=== PATIENT | female | born 1995 | race Caucasian/White ===

== ENCOUNTER 2017-10-22 21:35 | Outpatient (CLI) | payer OTHER ==
[~2017-10-22] VITALS: Ht 152.4 cm; Wt 59.7 kg
[2017-10-22 21:39] VITALS: Ht 152.4 cm; Wt 59.7 kg
--- NOTE | 2017-10-22 23:40 | RADRPT ---
PROCEDURE: Biophysical profile. CLINICAL INDICATION: Pelvic pain. TECHNIQUE: Multiple sonographic images of the pelvis were obtained with transabdominal technique. COMPARISON: No prior studies are available for comparison. FINDINGS: There is a single living intrauterine gestation with the fetus in a vertex position. The placenta i s posterior in location, grade 1 to 2. heart tones of 136 beats per minute are identified. Th ere is low normal amniotic fluid volume with an JACQUIE of 8.5 cm. breathing movements = 2 Gross body movements = 2 tone = 2 Qualitative AFV = 2 IMPRESSION: Biophysical profile 8 out of 8. Low normal JACQUIE of 8.5 cm. .Rogelio Castellanos MD, Date Time Electronically viewed and signed by .Rogelio Castellanos MD, on 10/22/2017 23:40 .T/
--- NOTE | 2017-10-23 00:05 | RADRPT ---
PROCEDURE: Obstetrical ultrasound, limited. CLINICAL INDICATION: Pelvic pain. TECHNIQUE: Multiple sonographic images of the pelvis were obtained using transabdominal technique . Images were obtained with ling scale and color Doppler. The images were reviewed on a PACS works tation. COMPARISON: No prior studies are available for comparison. FINDINGS: There is a single living intrauterine gestation with the fetus in a vertex presentation. hear t tones of 159 beats per minute are identified. The placenta is posterior in location, grade 1. Th ere is no evidence of placenta previa or abruption. Measurements were made in order to determine age. The results are as follows: BPD =8.15 cm HC =30.51 cm AC =30.63 cm FL =6.68 cm. Estimated gestational age of approximately 34 weeks and 0 days. The estimated date of delivery is 12/03/2017. The EFW = 2390 +/- 359 grams. Estimated weight percentage equals 4.2%. IMPRESSION: Single viable intrauterine gestation of approximately 34 weeks and 0 days, with an ultrasound CHRISTIANA of 12/03/2017. .Rogelio Castellanos MD, MD Date Time Electronically viewed and signed by .Rogelio Castellanos MD, MD on 10/23/2017 00:05 .T/
--- NOTE | 2017-10-23 00:29 | TRIAGE ---
OB Triage Datetime Report Generated by CPN: 10/23/2017 00:29 Datetime: 10/23/2017 00:28 Stage of : OB Triage Datetime: 10/22/2017 22:24 Labor Evaluation Frequency: 4-7 Monitor Mode: External Duration (sec)2399: 60-80 Pattern: Normal: <= 5 Contractions in 10 Minutes Heart Rate FHR Baseline Rate: 145 Monitor Mode: External US FHR Baseline Changes: No Baseline Change Variability: Moderate 6-25 bpm Accelerations: 15X15 Decelerations: None Category: Category I Datetime: 10/22/2017 21:54 Vaginal Exam Dilatation (cms): 1.0 Effacement (%): 70 Station: -1 Exam By: NICO RIOS Vaginal Bleeding: None Cervix, Consistency: Soft Cervix, Position: Midposition Presentation 'A': Cephalic Datetime: 10/22/2017 21:48 Monitor Mode: Palpation Resting Tone [place]: Relaxed Monitor Mode: External US Datetime: 10/22/2017 21:36 Stage of : OB Triage Assessment Type: Triage Maternal Assessment Level of Consciousness: Fully Conscious Headache: Denies Blurred Vision: No Respiratory Effort: Unlabored; Regular Rhythm; Equal Expansion Nausea/Vomiting: Denies RUQ Epigastric Pain: Denies Facial Edema: None Fall Risk Assessment History of Falling: (0) No Secondary Diagnosis: (0) No Ambulatory Aid: (0) Bedrest/Nurse Assist IV Therapy: (0) No Gait: (0) Normal/Bedrest/Immobile Mental Status: (0) Oriented to Own Ability Fall Score: 0 Fall Risk Score Definition: No Risk: No action required Datetime: 10/22/2017 21:25 EGA: 37.5 Datetime: 10/22/2017 21:21 Time of Arrival: 10/22/2017 21:21 Arrived By: Ambulatory Arrived From: Home Chief Complaint: UC'S SINCE YESTERDAY Q15MIN Movement: Present Contractions: Occasional Contractions: Q15MIN Rupture of Membranes: Denies Vaginal Bleeding: None Vaginal Discharge: Denies Recent Sexual Intercouse: Denies Abdominal Trauma: Not Applicable Patient Complaints: Contractions Time Provider Notified: 10/22/2017 22:11 Provider Notified: STALIN Initial Plan: AVA KENDRICK, MAC OBRICHARDN
--- NOTE | 2017-10-23 03:10 | PN ---
Triage Information Date/Time Reason for visit: Uterine contractions Weeks of Gestation 37 weeks and 5 days /Para 1 para 0 Diabetes: none Hypertention: none Additional information 23-year-old with IUP at 37 weeks and 5 days presented with complaint of contractions. She denied any leaking of fluid, vaginal bleeding or decreased movement. Size was noted to be smaller than dates. Growth ultrasound showed at 34 weeks. Concern for IUGR. NST and BPP reassuring. Patient was advised to present in 3 days for testing NST and BPP. Objective Heart Rate: 130's Contractions: None Exam General appearance: Alert and oriented 4. Patient does not appear to be in any acute distress. Abdomen: Soft, gravid, fundal height, smaller than gestational age, concern for IUGR Results/Medications Imaging Results PROCEDURE: Obstetrical ultrasound, limited. CLINICAL INDICATION: Pelvic pain. TECHNIQUE: Multiple sonographic images of the pelvis were obtained using transabdominal technique. Images were obtained with ling scale and color Doppler. The images were reviewed on a PACS workstation. COMPARISON: No prior studies are available for comparison. FINDINGS: There is a single living intrauterine gestation with the fetus in a vertex presentation. heart tones of 159 beats per minute are identified. The placenta is posterior in location, grade 1. There is no evidence of placenta previa or abruption. Measurements were made in order to determine age. The results are as follows: BPD = 8.15 cm HC = 30.51 cm AC = 30.63 cm FL = 6.68 cm. Estimated gestational age of approximately 34 weeks and 0 days. The estimated date of delivery is 12/03/2017. The EFW = 2390 +/- 359 grams. Estimated weight percentage equals 4.2%. IMPRESSION: Single viable intrauterine gestation of approximately 34 weeks and 0 days, with an ultrasound CHRISTIANA of 12/03/2017. .Rogelio Castellanos MD, MD Date Time Electronically viewed and signed by .Rogelio Castellanos MD, MD on 10/23/2017 00:05 .T/ CC: EDWAR CEJA MD PROCEDURE: Biophysical profile. CLINICAL INDICATION: Pelvic pain. TECHNIQUE: Multiple sonographic images of the pelvis were obtained with transabdominal technique. COMPARISON: No prior studies are available for comparison. FINDINGS: There is a single living intrauterine gestation with the fetus in a vertex position. The placenta is posterior in location, grade 1 to 2. heart tones of 136 beats per minute are identified. There is low normal amniotic fluid volume with an JACQUIE of 8.5 cm. breathing movements = 2 Gross body movements = 2 tone = 2 Qualitative AFV = 2 IMPRESSION: Biophysical profile 8 out of 8. Low normal JACQUIE of 8.5 cm. Disposition: Discharge Assessment/Plan Follow-up in 3 days in triage for NST BPP Consider consultation with maternal- medicine and Doppler, ultrasound at next visit Growth ultrasound based on patient's original due date shows estimated weight for percentile consistently IUGR records are not available Currently testing reassuring Advised the patient to present to triage in 3 days for repeat the testing and possible Doppler with obtaining records and consultation with MFM If confirmed to be IUGR consider delivery Strict labor precaution and kick count discussed with patient Follow-up in 3 days Patient verbalized understanding EDWAR CEJA MD Oct 23, 2017 03:10
== END 2017-10-23 00:31 | disposition home or self-care (01) ==
LOC: OBT 21:35 → L-D 21:38 → OBT 10-23 00:31
PROVIDERS: ATTEND Obstetrics & Gynecology
DX: O62.9 Abnormality of forces of labor, unspecified (principal); Z3A.37 37 weeks gestation of pregnancy
CPT/HCPCS: 76815; 76818; G0463

== ENCOUNTER 2017-10-23 03:30 | Inpatient (IN) | payer OTHER ==
[~2017-10-23] VITALS: Ht 152.4 cm; Wt 59.7 kg
[2017-10-23] MEDS ORDERED: LACTATED RINGER'S 1,000 ML IV SCH (03:44)
[2017-10-23] MEDS ORDERED: CARBOPROST 250 MCG INJ IM PRN ×2 (04:00→14:30)
[2017-10-23] MEDS ORDERED: OXYTOCIN 30 UNITS/LR 500 ML IV PRN ×2 (04:00→14:30)
[2017-10-23] MEDS ORDERED: LIDOCAINE 1% (MPF) 30 ML INJ INJ PRN (04:00)
[2017-10-23] MEDS ORDERED: METHYLERGONOVINE 0.2 MG INJ IM PRN ×2 (04:00→14:30)
[2017-10-23] MEDS ORDERED: LACTATED RINGER'S 1,000 ML IV PRN (04:00)
[2017-10-23] MEDS ORDERED: OXYTOCIN 30 UNITS/LR 500 ML IV SCH ×3 (04:00→06:30)
[2017-10-23] MEDS ORDERED: AMPICILLIN 2 GM/NS (PMX) 100 ML IV ONE (04:00)
[2017-10-23] MEDS ORDERED: IBUPROFEN 600 MG TAB PO PRN (04:00)
[2017-10-23] MEDS ORDERED: BUTORPHANOL 2 MG INJ IV PRN (04:00)
[2017-10-23] MEDS ORDERED: MISOPROSTOL 200 MCG TAB PR PRN ×2 (04:00→14:30)
[2017-10-23] MEDS ORDERED: OXYCODONE/ASPIRIN (4.88/325) TAB PO PRN ×3 (04:00→14:30)
--- NOTE | 2017-10-23 04:22 | TRIAGE ---
OB Triage Datetime Report Generated by CPN: 10/23/2017 04:22 Datetime: 10/23/2017 04:19 Assessment Type: Admission Assessment Time of Arrival: 10/23/2017 03:31 EGA: 37.6 Arrived By: Wheelchair Arrived From: Home Chief Complaint: SROM Movement: Present Contractions: Regular Contractions: Q7 Rupture of Membranes: Ruptured Vaginal Bleeding: None Vaginal Discharge: Present Recent Sexual Intercouse: Denies Abdominal Trauma: Not Applicable Patient Complaints: Contractions Time Provider Notified: 10/23/2017 03:49 Provider Notified: STALIN Level of Consciousness: Fully Conscious DTR's/Clonus: DTRs 2+; No Clonus Headache: Denies Blurred Vision: No Respiratory Effort: Unlabored; Regular Rhythm; Equal Expansion Breath Sounds, Left: Clear and Equal Breath Sounds, Right: Clear and Equal Nausea/Vomiting: Denies RUQ Epigastric Pain: Denies Facial Edema: None History of Falling: (0) No Secondary Diagnosis: (0) No Ambulatory Aid: (0) Bedrest/Nurse Assist Gait: (0) Normal/Bedrest/Immobile Mental Status: (0) Oriented to Own Ability Pain Scale: 10 Pain Presence: Intermittent Pain Type: Contraction Pain Location: Abdomen; Back Membrane Status: Ruptured Membranes Ruptured Date/Time: 10/23/2017 03:00 Membranes Rupture Method: Spontaneous Amniotic Fluid Color: Clear Amniotic Fluid Amount: Small Amniotic Fluid Odor: None Datetime: 10/23/2017 04:18 Time of Arrival: 10/23/2017 04:00 EGA: 37.6 Arrived By: Wheelchair Arrived From: OB TRIAGE Datetime: 10/23/2017 03:48 Membrane Status: Ruptured Datetime: 10/23/2017 03:38 Dilatation (cms): 2.0 Effacement (%): 80 Station: -1 Exam By: GSTRATTON RN Datetime: 10/23/2017 00:21 FHR Baseline Rate: 150 Monitor Mode: External US FHR Baseline Changes: No Baseline Change Variability: Moderate 6-25 bpm Accelerations: Prolonged Datetime: 10/22/2017 21:36 Fall Score: 0 Fall Risk Score Definition: No Risk: No action required Datetime: 10/22/2017 21:25 EGA: 37.5
[2017-10-23 04:28] VITALS: Ht 152.4 cm; Wt 59.7 kg
[2017-10-23 04:32] LABS: BASOPHILS % 0.2 % (0.0-2.0); EOSINOPHILS # 0.1 10^3/ul (0.0-0.5); EOSINOPHILS % 0.6 % (0.0-7.0); HEMATOCRIT 37.5 % (37.0-47.0); HEMOGLOBIN 12.8 g/dl (12.0-16.0); LYMPHOCYTES # 2.4 10^3/ul (0.8-2.9); LYMPHOCYTES % 19.1 % (15.0-51.0); MEAN CORPUSCULAR HEMOGLOBIN 29.6 pg (29.0-33.0); MEAN CORPUSCULAR HGB CONC 34.1 g/dl (32.0-37.0); MEAN CORPUSCULAR VOLUME 86.8 fl (82.0-101.0); MEAN PLATELET VOLUME 10.4 fl (7.4-10.4); MONOCYTE # 0.7 10^3/ul (0.3-0.9); MONOCYTES % 5.6 % (0.0-11.0); NEUTROPHIL # 9.2 10^3/ul (1.6-7.5); NEUTROPHILS % 73.9 % (39.0-77.0); PLATELET COUNT 215 10^3/UL (140-415); RED BLOOD COUNT 4.32 10^6/ul (4.20-5.40); WHITE BLOOD COUNT 12.4 10^3/ul (4.8-10.8)
[2017-10-23 04:52] LABS: INR 0.93; PARTIAL THROMBOPLASTIN TIME 29.2 Sec (25.0-35.0); PROTIME 12.5 Sec (12.2-14.2)
[2017-10-23] MEDS ORDERED: MINERAL OIL LIGHT 10 ML VIAL TOP PRN (05:00)
[2017-10-23] MEDS ORDERED: FENTAnyl 2MCG/ML-ROPIV 0.2% 100 ML ONE (05:55)
[2017-10-23] MEDS ORDERED: FENTAnyl 2MCG/ML-ROPIV 0.2% 100 ML BAG EPI SCH (06:30)
[2017-10-23] MEDS ORDERED: ONDANSETRON 4 MG INJ IV PRN (06:30)
[2017-10-23] MEDS ORDERED: DIPHENHYDRAMINE 50 MG INJ IV PRN (06:30)
[2017-10-23] MEDS ORDERED: NALOXONE (0.4 MG/ML) INJ IV PRN (06:30)
[2017-10-23 07:45] VITALS: BP 94/54; PULSE 89; RESP 20
[2017-10-23] MEDS ORDERED: AMPICILLIN 1 GM/NS (PMX) 50 ML IV SCH (08:00)
--- NOTE | 2017-10-23 10:24 | HP ---
Date/Time of Note Date/Time of Note DATE: 10/23/17 TIME: 10:12 OB - History Hx of Present Free Text/Dictation 22 y.o [id number] srom in early labor VE 2cm 80 -2 rom confirmed rom plus pos uc q4min this patient already had late entry at previous clinic and again transferred to my clinic at after 34w admitted for expectant management /poss augmentation Chief Complaint: srom Estimated Due Date: Nov 07, 2017 : 1 Para: 0 Spontaneous : 0 Therapeutic : 0 Care: Limited Care Ultrasounds: Other Obstetrical Complications: None Medical Complications: None Past Family/Social History * Past Medical, Surgical, Family and Obstetric Histories reviewed from chart. Blood Type: B+ Rubella: unknown RPR/VDRL: Negative GBS Status: Unknown HBsAG: Unknown OB Admission Exam Vital Signs Vital Signs Vital Signs Date Time Temp Pulse Resp B/P Pulse Ox O2 Delivery O2 Flow Rate FiO2 10/23/17 07:45 98.2 89 20 94/54 Room Air Physical Exam HEENT: WNL Heart: Rhythm Normal Lungs: Clear, Equal Abdomen: WNL Extremities: Normal Reflexes: Normal Cervical Dilatation: 2cm Effacement: 75% Station: -2 Membranes: Ruptured Amniotic Fluid: Clear Heart Rate: 120's Accelerations: Accelerations Present Decelerations: No Decelerations Varibility: Moderate Contractions on Admission: < 5 Minutes Apart Intensity: Mild Last 72 hours Lab Results CBC & BMP 10/23/17 03:40 OB Assessment/Plan Other Assessment: IUP 37w6d in labor SROM Plan: Expectant Management Induction Method: other Other plan: poss augmentation JOVITA GANT MD Oct 23, 2017 10:23
--- NOTE | 2017-10-23 10:27 | LDN ---
Date/Time of Note Date/Time of Note DATE: 10/23/17 TIME: 10:24 Delivery Summary Weeks of Gestation 37w6d Placenta Delivered: Spontaneously Episiotomy: No Perineal laceration: 1 Laceration repair: 000ch gut Anesthesia type: Epidural Estimated blood loss: 100 Sponge & Needle done & correct: Yes All needle counts correct: Yes Any foreign bodies felt in the: No Problems: Delivery Information Sex Sex: female Apgars 1 Minute: 9 5 Minute: 9 Suctioning Nose & mouth suctioned at josh: Yes Delee suction performed: No Umbilical Cord Umbilical cord with: 3 Vessels Cord presentations: no nuchal cord Cord Blood was obtained: Yes Mother & Baby Disposition Disposition Mom & Baby to Maternity; Good: Yes Mom transferred to: Other Baby to NICU: No () JOVITA GANT MD Oct 23, 2017 10:27
[2017-10-23 14:22] VITALS: BP 107/67; PULSE 80
[2017-10-23] MEDS ORDERED: ZOLPIDEM 5 MG TAB PO PRN (14:30)
[2017-10-23] MEDS ORDERED: BENZOCAINE 20% 56 ML SPRAY TOP PRN (14:30)
[2017-10-23] MEDS ORDERED: LANOLIN 7 GM TUBE TOP PRN (14:30)
[2017-10-23] MEDS ORDERED: WITCH HAZEL/GLYCERIN PAD PR PRN (14:30)
[2017-10-23 15:00] VITALS: BP 111/62; RESP 20
[2017-10-23] MEDS: IBUPROFEN 600 MG TAB PO SCH ×3 (15:03→23:56)
[2017-10-23 17:30] VITALS: BP 110/66; PULSE 71; RESP 18
[2017-10-23 18:30] VITALS: BP 107/62; PULSE 66; RESP 16
[2017-10-23 20:00] VITALS: BP 110/58; PULSE 110; PULSE 72; RESP 19
[2017-10-23] MEDS: SENNA/DOCUSATE NA (8.6MG/50MG) TAB PO SCH (21:50)
[2017-10-24] VITALS: BP 108/71; PULSE 79; RESP 19
[2017-10-24 04:30] VITALS: BP 110/70; PULSE 75; RESP 18
[2017-10-24] MEDS: IBUPROFEN 600 MG TAB PO SCH ×4 (06:10→23:35)
[2017-10-24 06:37] LABS: BASOPHILS % 0.3 % (0.0-2.0); EOSINOPHILS # 0.1 10^3/ul (0.0-0.5); EOSINOPHILS % 0.8 % (0.0-7.0); HEMATOCRIT 33.9 % (37.0-47.0); HEMOGLOBIN 11.5 g/dl (12.0-16.0); LYMPHOCYTES # 1.9 10^3/ul (0.8-2.9); LYMPHOCYTES % 17.2 % (15.0-51.0); MEAN CORPUSCULAR HGB CONC 33.9 g/dl (32.0-37.0); MEAN CORPUSCULAR VOLUME 88.5 fl (82.0-101.0); MEAN PLATELET VOLUME 10.1 fl (7.4-10.4); MONOCYTE # 0.6 10^3/ul (0.3-0.9); MONOCYTES % 5.4 % (0.0-11.0); NEUTROPHIL # 8.3 10^3/ul (1.6-7.5); NEUTROPHILS % 75.8 % (39.0-77.0); PLATELET COUNT 154 10^3/UL (140-415); RED BLOOD COUNT 3.83 10^6/ul (4.20-5.40); RED CELL DISTRIBUTION WIDTH 13.2 % (11.5-14.5); WHITE BLOOD COUNT 10.9 10^3/ul (4.8-10.8)
--- NOTE | 2017-10-24 06:59 | PN ---
Date/Time of Note Date/Time of Note DATE: 10/24/17 TIME: 06:58 OB Subjective Subjective Subjective no c/o OB Objective Objective Objective vss afebrile fundus firm lochia min calf neg for tenderness OB Assessment/Plan Other Assessment: stable post Other plan: d/s home in am JOVITA GANT MD Oct 24, 2017 06:59
[2017-10-24 08:00] VITALS: BP 112/70; PULSE 80; RESP 17
[2017-10-24] MEDS ORDERED: INFLUENZA VIRUS VACCINE 0.5 ML (DISPENSING) IM* ONE (09:00)
[2017-10-24] MEDS: SENNA/DOCUSATE NA (8.6MG/50MG) TAB PO SCH ×2 (09:27→22:01)
[2017-10-24 16:00] VITALS: BP 106/60; PULSE 80; RESP 18
[2017-10-24 20:00] VITALS: BP 113/77; PULSE 95; RESP 18
[2017-10-25 04:00] VITALS: BP 118/74; PULSE 17; PULSE 18; RESP 17
[2017-10-25] MEDS: IBUPROFEN 600 MG TAB PO SCH ×3 (05:47→17:51)
[2017-10-25 08:25] VITALS: BP 106/71; PULSE 50; PULSE 74; RESP 17
[2017-10-25] MEDS ORDERED: DIPHTH/TET/ACEL PERTUSS (ADULT) 0.5 ML VIAL IM* ONE (09:00)
[2017-10-25] MEDS: SENNA/DOCUSATE NA (8.6MG/50MG) TAB PO SCH (09:25)
--- NOTE | 2017-10-25 11:40 | PD.PPDC ---
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
--- NOTE | 2017-10-25 11:43 | DS ---
Date/Time of Note Date/Time of Note DATE: 10/25/17 TIME: 11:41 Obstetrical Discharge Record Final Diagnosis Final Diagnosis: Term delivered Vaginal Delivery Obstetrical Delivery: Spontaneous, Laceration, Repaired Complications Augmentation: Yes Rupture of Membranes: No Condition on Discharge Physical Assessment Last Vitals: vss afebrile Voiding: Yes Bowel Movement: Yes Breast: Soft, non-tender Fundus: Firm Episiotomy: n/a Calf Tenderness: No Patient Condition: Stable JOVITA GANT MD Oct 25, 2017 11:43
== END 2017-10-25 19:00 | disposition home or self-care (01) | DRG 775 ==
LOC: OBT 03:30 → L-D 03:30 → OBT 03:45 → PP1 17:23
PROVIDERS: ADMIT Obstetrics & Gynecology; ATTEND Obstetrics & Gynecology
PROC: 10E0XZZ Delivery of Products of Conception, External Approach (ICD-10-PCS; principal; 2017-10-23)
PROC: 0HQ9XZZ Repair Perineum Skin, External Approach (ICD-10-PCS; 2017-10-23)
DX: O70.0 First degree perineal laceration during delivery (principal); Z37.0 Single live birth; Z3A.37 37 weeks gestation of pregnancy
CPT/HCPCS: 62319; 84112; 85025; 85610; 85730; 86592; 86900; 86901; 87340; 88307; 90686; 90715; G0463; J0290; J0595; J2590; J3010; J7120